=== PATIENT | male | born 1955 | race African-American/Black ===

== ENCOUNTER 2019-10-05 14:18 | Emergency (ER) | payer OTHER ==
[~2019-10-05] VITALS: Ht 175.3 cm; Wt 69.9 kg
[2019-10-05 14:26] VITALS: BP 123/69
--- NOTE | 2019-10-05 14:38 | NUR ---
PT AMBULATED TO WITH STEADY GAIT
[2019-10-05] MEDS ORDERED: NACL 0.9% 1,000 ML IV SCH (14:53)
[2019-10-05] MEDS ORDERED: NACL 0.9% 1,000 ML IV ONE (14:53)
[2019-10-05] MEDS ORDERED: ONDANSETRON 4 MG/2 ML VIAL IVP ONE (14:55)
[2019-10-05] MEDS ORDERED: FAMOTIDINE 20 MG/2 ML VIAL IVP ONE (14:55)
[2019-10-05] MEDS ORDERED: PANTOPRAZOLE 40 MG INJ VIAL IVP ONE (14:55)
--- NOTE | 2019-10-05 14:58 | NUR ---
VICKEY W C/O WEAKNESS & DIZZINESS STARTING THIS MORNING AT WORK. PT STATES HIS STOMACH WAS HURTING THIS MORNING WHEN HE WOKE. STATES HE WAS TRYING TO POOP AND WAS STRAINING AND THEN BEGAN TO FEEL DIZZY & LIGHT HEADED. PT STATES HE HAS BEEN CONSTIPATED FOR A COUPLE DAYS. ABDOMEN SOFT/FLAT AND NON TENDER TO PALPATION. BOWEL SOUNDS PRESENT X4. LBM TODAY: HARD/FORMED PER PT. PT DENIES N/V/D/FEVER. PER EMS, BP ON SCENE WAS 70S/30S, HERE IN ER BP IS 127/73. PT A&O, ANSWERING QUESTIONS APPROPRIATELY. [facility]CS 15/15. BED IN LOW POSITION, PLACED ON BEDSIDE SECONDARY SET UP MAN AT THIS TIME.
--- NOTE | 2019-10-05 14:59 | NUR ---
DR. TOSCANO AT BEDSIDE EVALUATING PT
[2019-10-05 16:20] LABS: BASOPHILS % (AUTO) 0.1 % (0.0-2.0); HEMATOCRIT 42.3 % (36-52); LYMPHOCYTES # (AUTO) 0.2 K/uL (2.0-11.5); LYMPHOCYTES % (AUTO) 4.9 % (20.5-51.1); MEAN CORPUSCULAR HEMOGLOBIN 31 pg (27-31); MEAN CORPUSCULAR HGB CONC 33 g/dL (33-37); MONOCYTES # (AUTO) 0.2 K/uL (0.8-1.0); MONOCYTES % (AUTO) 4.5 % (1.7-9.3); NEUTROPHILS # (AUTO) 3.4 K/uL (1.8-7.7); NEUTROPHILS % (AUTO) 89.5 % (42.2-75.2); PLATELET COUNT (AUTO) 133 K/uL (140-450); RED BLOOD CELL COUNT(AUTO) 4.55 MIL/uL (4.20-6.10); RED CELL DISTRIBUTION WIDTH 14.6 % (11.6-13.7); WHITE BLOOD COUNT (AUTO) 3.7 K/uL (4.8-10.8)
[2019-10-05 16:34] LABS: PROTHROMBIN TIME 9.9 secs (10.8-13.4)
[2019-10-05 16:41] LABS: ANION GAP 11.1 (8-16); CARBON DIOXIDE 27.8 mmol/L (21-32); POTASSIUM 3.9 mmol/L (3.5-5.1)
[2019-10-05 16:42] LABS: ALBUMIN 3.6 g/dL (3.4-5.0); CREATININE 1.3 mg/dL (0.7-1.3); TOTAL BILIRUBIN 2.2 mg/dL (0.0-1.0)
--- NOTE | 2019-10-05 16:52 | NUR ---
PT AMBULATED TO RESTROOM WITH STEADY GAIT
[2019-10-05] MEDS ORDERED: DEXTROSE 50% 50 ML SYR IVP ONE ×2 (17:05→17:06)
[2019-10-05 17:07] LABS: APPEARANCE,URINE CLEAR (CLEAR); BILIRUBIN,URINE NEGATIVE (NEGATIVE); BLOOD, URINE NEGATIVE (NEGATIVE); COLOR,URINE YELLOW (YELLOW); LEUKOCYTE ESTERASE ,URINE NEGATIVE (NEGATIVE); NITRITE, URINE NEGATIVE (NEGATIVE); UGLUCOSE NEGATIVE (NEGATIVE)
[2019-10-05] MEDS ORDERED: [UNRECOGNIZED DRUG - CODE] PO (17:35)
[2019-10-05] MEDS ORDERED: MEX2.5 PO (17:38)
--- NOTE | 2019-10-05 17:45 | NUR ---
PT RESTING IN BED, AT BEDSIDE
--- NOTE | 2019-10-05 19:00 | NUR ---
REPORT GIVEN TO ANAMARIA JUARES FOR CONTINUATION OF CARE
--- NOTE | 2019-10-05 20:10 | NUR ---
SPOKE WITH DR CHOWDHURY AND GAVE REPORT REGARDING PT. DR CHOWDHURY ENDORSED POSSIBLE TRANSFER TO [facility].
--- NOTE | 2019-10-05 20:36 | NUR ---
[facility] TRANSPORT AT BEDSIDE
--- NOTE | 2019-10-05 20:55 | NUR ---
SPOKE WITH JÚNIOR CONRAD AT [facility]. GAVE REPORT REGARDING PT.
--- NOTE | 2019-10-05 21:00 | NUR ---
PT DISCHARGED AND TRANSFERRED TO [facility] ED. REPORT GIVEN TO [facility]. PT AT STABLE CONDITION. PT CARE TRANSFERRED TO [facility].
[2019-10-05 22:53] VITALS: BP 129/74
--- NOTE | 2019-10-07 12:52 | NUR ---
Late entry. Confirmed with RN that 0.9 NS 100 ml/hr IV completed at 2100
== END 2019-10-05 21:00 | disposition short-term general hospital (02) ==
LOC: MED 14:18
DX: I95.9 Hypotension, unspecified (principal); E16.2 Hypoglycemia, unspecified; R42 Dizziness and giddiness; R53.1 Weakness; M19.90 Unspecified osteoarthritis, unspecified site; R55 Syncope and collapse; R10.30 Lower abdominal pain, unspecified; Z79.899 Other long term (current) drug therapy
CPT/HCPCS: 36415; 70450; 71045; 74176; 80053; 81003; 82150; 83690; 84484; 85025; 85610; 86886; 86900; 86901; 93005; 96374; 96375; 99285; C9113; J2405; J3490; J7030; Q0092